=== PATIENT | female | born 1995 | race Caucasian/White ===

== ENCOUNTER 2017-08-21 08:34 | Inpatient (IN) | payer OTHER ==
[2017-08-21] MEDS ORDERED: OXYTOCIN 30 UNITS/LR 500 ML IV ×2 (09:00→13:00)
[2017-08-21] MEDS ORDERED: MISOPROSTOL 200 MCG TAB PR ×2 (09:00→13:00)
[2017-08-21] MEDS ORDERED: METHYLERGONOVINE 0.2 MG INJ IM (09:00)
[2017-08-21] MEDS ORDERED: CEFAZOLIN 2 GM/50 ML (PMX) 50 ML IV (09:00)
[2017-08-21] MEDS ORDERED: METOCLOPRAMIDE 10 MG INJ IM (09:00)
[2017-08-21] MEDS ORDERED: CARBOPROST 250 MCG INJ IM ×2 (09:00→13:00)
[2017-08-21] MEDS: LACTATED RINGER'S 1,000 ML IV ×3 (09:02→19:14)
[2017-08-21 09:10] LABS: ADD MAN DIFF? NO
[2017-08-21 09:18] LABS: BASOPHILS % 0.3 % (0.0-2.0); EOSINOPHILS % 0.2 % (0.0-7.0); HEMATOCRIT 28.6 % (37.0-47.0); HEMOGLOBIN 9.2 g/dl (12.0-16.0); LYMPHOCYTES # 2.2 10^3/ul (0.8-2.9); LYMPHOCYTES % 25.5 % (15.0-51.0); MEAN CORPUSCULAR HEMOGLOBIN 29.6 pg (29.0-33.0); MEAN CORPUSCULAR HGB CONC 32.2 g/dl (32.0-37.0); MEAN PLATELET VOLUME 11.4 fl (7.4-10.4); MONOCYTE # 0.6 10^3/ul (0.3-0.9); MONOCYTES % 6.5 % (0.0-11.0); NEUTROPHIL # 5.8 10^3/ul (1.6-7.5); NEUTROPHILS % 66.8 % (39.0-77.0); PLATELET COUNT 223 10^3/UL (140-415); RED BLOOD COUNT 3.11 10^6/ul (4.20-5.40); RED CELL DISTRIBUTION WIDTH 13.8 % (11.5-14.5)
[2017-08-21 09:18] LABS: WHITE BLOOD COUNT 8.6 10^3/ul (4.8-10.8)
[2017-08-21 09:35] LABS: ALANINE AMINOTRANSFERASE 17 IU/L (13-69); ALBUMIN/GLOBULIN RATIO 0.96; ALKALINE PHOSPHATASE 392 IU/L (42-121); ANION GAP 10 (8-16); ASPARTATE AMINO TRANSFERASE 28 IU/L (15-46); BILIRUBIN,INDIRECT 0.1 mg/dl (0-1.1); BILIRUBIN,TOTAL 0.1 mg/dl (0.2-1.3); BLOOD UREA NITROGEN 14 mg/dl (7-20); CALCIUM 8.7 mg/dl (8.4-10.2); CARBON DIOXIDE 21 mmol/L (21-31); CHLORIDE 112 mmol/L (97-110); CREATININE 0.76 mg/dl (0.44-1.00); GLUCOSE 76 mg/dl (70-220); POTASSIUM 4.2 mmol/L (3.5-5.1); SODIUM 139 mmol/L (135-144); TOTAL PROTEIN 6.1 g/dl (6.1-8.1); URIC ACID 5.5 mg/dl (3.1-7.9)
[2017-08-21 09:59] LABS: INR 0.88; PARTIAL THROMBOPLASTIN TIME 27.1 Sec (25.0-35.0); PT RATIO 0.9
[2017-08-21] MEDS: MAGNESIUM SULFATE 4 GM/100 ML 100 ML IV (10:28)
[2017-08-21] MEDS ORDERED: CA GLUCONATE (GM) 10% 10ML INJ IV ×2 (10:30→13:00)
[2017-08-21] MEDS: hydrALAzine 20 MG INJ IV (10:30)
[2017-08-21 10:48] LABS: ADD UMIC YES; UR ASCORBIC ACID NEGATIVE (NEGATIVE); UR BACTERIA FEW /HPF (NONE SEEN); UR BILIRUBIN (Dip) NEGATIVE (NEGATIVE); UR BLOOD (Dip) NEGATIVE (NEGATIVE); UR CLARITY SLIGHTLY CLOUDY (CLEAR); UR COLOR YELLOW (YELLOW); UR GLUCOSE (Dip) NEGATIVE (NEGATIVE); UR KETONES (Dip) NEGATIVE (NEGATIVE); UR LEUKOCYTE ESTERASE (Dip) NEGATIVE Leu/ul (NEGATIVE); UR MUCUS FEW /HPF (NONE SEEN); UR NITRITE (Dip) NEGATIVE (NEGATIVE); UR RBC 3 /HPF (0-5); UR SQUAMOUS EPITHELIAL CELL FEW /HPF (FEW); UR TOTAL PROTEIN (Dip) 3+ mg/dl (NEGATIVE); UR UROBILINOGEN (Dip) NEGATIVE (NEGATIVE); UR WBC 5 /HPF (0-5)
[2017-08-21] MEDS: FAMOTIDINE 20 MG INJ IV (10:57)
[2017-08-21] MEDS: ONDANSETRON 4 MG INJ IV (10:57)
[2017-08-21] MEDS: METOCLOPRAMIDE 10 MG INJ IV (11:00)
[2017-08-21] MEDS: MAGNESIUM SULFATE 20 GM/500 ML 500 ML IV ×2 (11:03→23:01)
[2017-08-21] MEDS: OXYTOCIN 30 UNITS/LR 500 ML IV ×2 (12:27→12:46)
[2017-08-21] MEDS ORDERED: HYDROmorphONE (0.2 MG/ML) 10ML SYG IV ×3 (12:30)
[2017-08-21] MEDS ORDERED: KETOROLAC 30 MG INJ IV ×2 (12:30)
[2017-08-21] MEDS ORDERED: LABETALOL HCL 20MG INJ IV (12:30)
[2017-08-21] MEDS ORDERED: HYDROmorphONE 0.5 MG/0.5 ML SYG IV ×2 (12:30)
[2017-08-21] MEDS ORDERED: ZOLPIDEM 5 MG TAB PO (12:30)
[2017-08-21] MEDS ORDERED: NALOXONE (0.4 MG/ML) INJ IV (12:30)
[2017-08-21] MEDS ORDERED: ONDANSETRON 4 MG INJ IV ×2 (12:30)
[2017-08-21] MEDS ORDERED: hydrALAzine 20 MG INJ IV (12:30)
[2017-08-21] MEDS ORDERED: DIPHENHYDRAMINE 50 MG INJ IV ×2 (12:30)
[2017-08-21] MEDS: CEFAZOLIN 1 GM/50 ML (PMX) 50 ML IV ×2 (13:00→22:18)
[2017-08-21] MEDS ORDERED: LANOLIN 7 GM TUBE TOP (13:00)
[2017-08-21 18:53] LABS: RAPID PLASMA REAGIN NONREACTIVE (NR)
[2017-08-21 19:00] LABS: MAGNESIUM 5.3 mg/dl (1.7-2.5)
[2017-08-21] MEDS: SENNA/DOCUSATE NA (8.6MG/50MG) TAB PO (21:00)
[2017-08-22] MEDS: KETOROLAC 30 MG INJ IV ×2 (00:53→06:39)
[2017-08-22 02:18] LABS: MAGNESIUM 5.1 mg/dl (1.7-2.5)
[2017-08-22] MEDS: CEFAZOLIN 1 GM/50 ML (PMX) 50 ML IV (06:06)
[2017-08-22] MEDS: MAGNESIUM SULFATE 20 GM/500 ML 500 ML IV (06:30)
[2017-08-22 08:59] LABS: ADD MAN DIFF? NO
[2017-08-22 09:08] LABS: ABNORMAL IP MESSAGE 1; BASOPHILS % 0.2 % (0.0-2.0); HEMATOCRIT 20.4 % (37.0-47.0); LYMPHOCYTES # 1.4 10^3/ul (0.8-2.9); MEAN CORPUSCULAR HEMOGLOBIN 30.6 pg (29.0-33.0); MEAN CORPUSCULAR HGB CONC 32.4 g/dl (32.0-37.0); MEAN CORPUSCULAR VOLUME 94.4 fl (82.0-101.0); MEAN PLATELET VOLUME 11.1 fl (7.4-10.4); MONOCYTE # 0.5 10^3/ul (0.3-0.9); MONOCYTES % 4.9 % (0.0-11.0); NEUTROPHIL # 7.9 10^3/ul (1.6-7.5); NEUTROPHILS % 80.4 % (39.0-77.0); PLATELET COUNT 180 10^3/UL (140-415); RED BLOOD COUNT 2.16 10^6/ul (4.20-5.40)
[2017-08-22 09:08] LABS: WHITE BLOOD COUNT 9.8 10^3/ul (4.8-10.8)
[2017-08-22 09:14] LABS: POSITIVE DIFF @See below
[2017-08-22 09:17] LABS: HEMOGLOBIN 6.6 g/dl (12.0-16.0)
[2017-08-22 09:49] LABS: MAGNESIUM 6.2 mg/dl (1.7-2.5)
[2017-08-22] MEDS: SENNA/DOCUSATE NA (8.6MG/50MG) TAB PO ×2 (09:50→21:06)
[2017-08-22] MEDS ORDERED: CEFAZOLIN 1 GM/50 ML (PMX) 50 ML IVPB (12:00)
[2017-08-22] MEDS: IBUPROFEN 600 MG TAB PO ×2 (12:27→18:22)
[2017-08-22] MEDS: OXYCODONE/ACETAMINOPHEN (5/325) TAB PO ×2 (13:43→19:40)
[2017-08-22] MEDS: FERROUS SULFATE (EC) 325 MG TAB PO ×2 (13:43→21:06)
[2017-08-23] MEDS: IBUPROFEN 600 MG TAB PO ×5 (00:14→23:40)
[2017-08-23 08:52] LABS: ADD MAN DIFF? NO
[2017-08-23 08:57] LABS: WHITE BLOOD COUNT 11.2 10^3/ul (4.8-10.8)
[2017-08-23 08:57] LABS: BASOPHILS % 0.2 % (0.0-2.0); EOSINOPHILS % 0.2 % (0.0-7.0); HEMATOCRIT 21.8 % (37.0-47.0); LYMPHOCYTES # 1.5 10^3/ul (0.8-2.9); LYMPHOCYTES % 12.9 % (15.0-51.0); MEAN CORPUSCULAR HGB CONC 32.1 g/dl (32.0-37.0); MEAN CORPUSCULAR VOLUME 93.6 fl (82.0-101.0); MEAN PLATELET VOLUME 10.8 fl (7.4-10.4); MONOCYTE # 0.6 10^3/ul (0.3-0.9); NEUTROPHIL # 9.1 10^3/ul (1.6-7.5); NEUTROPHILS % 81.2 % (39.0-77.0); PLATELET COUNT 245 10^3/UL (140-415); RED BLOOD COUNT 2.33 10^6/ul (4.20-5.40); RED CELL DISTRIBUTION WIDTH 14.4 % (11.5-14.5)
[2017-08-23] MEDS: FERROUS SULFATE (EC) 325 MG TAB PO ×3 (09:15→21:00)
[2017-08-23] MEDS: SENNA/DOCUSATE NA (8.6MG/50MG) TAB PO ×2 (09:15→21:20)
[2017-08-23] MEDS: OXYCODONE/ACETAMINOPHEN (5/325) TAB PO ×2 (14:19→21:20)
[2017-08-23] MEDS ORDERED: FERROUS GLUCONATE (EC) 325 MG TAB PO (21:00)
[2017-08-24] MEDS: IBUPROFEN 600 MG TAB PO ×4 (06:00→20:58)
[2017-08-24] MEDS: SENNA/DOCUSATE NA (8.6MG/50MG) TAB PO ×2 (08:13→20:54)
[2017-08-24] MEDS: FERROUS SULFATE (EC) 325 MG TAB PO ×3 (08:13→20:54)
[2017-08-24] MEDS: MAGNESIUM SULFATE 20 GM/500 ML 500 ML IV ×2 (11:00→21:00)
[2017-08-24] MEDS: MAGNESIUM SULFATE 4 GM/100 ML 100 ML IVPB (11:03)
[2017-08-24] MEDS ORDERED: BUPIVACAINE 0.75%/DEXT (SPINAL) 2 ML INJ (22:25)
[2017-08-24] MEDS ORDERED: OXYTOCIN 10 UNIT INJ (22:25)
[2017-08-24] MEDS ORDERED: morphine SULFATE/PF (10 MG/10 ML) INJ (22:25)
[2017-08-25] MEDS: IBUPROFEN 600 MG TAB PO ×3 (06:17→18:14)
[2017-08-25] MEDS: MAGNESIUM SULFATE 20 GM/500 ML 500 ML IV ×2 (07:00→17:00)
[2017-08-25 07:39] LABS: PATH REVIEW Y
[2017-08-25] MEDS: FERROUS SULFATE (EC) 325 MG TAB PO ×2 (09:40→13:00)
[2017-08-25] MEDS: SENNA/DOCUSATE NA (8.6MG/50MG) TAB PO (09:40)
== END 2017-08-25 18:49 | disposition home or self-care (01) | DRG 765 ==
LOC: L-D 08:34 → PP1 14:59
PROC: 10D00Z1 Extraction of Products of Conception, Low, Open Approach (ICD-10-PCS; principal; 2017-08-21 10:30)
PROC: 4A1HXCZ Monitoring of Products of Conception, Cardiac Rate, External Approach (ICD-10-PCS; 2017-08-21 10:30)
DX: O32.8XX2 Maternal care for other malpresentation of fetus, fetus 2 (principal); O30.043 Twin pregnancy, dichorionic/diamniotic, third trimester; O14.94 Unspecified pre-eclampsia, complicating childbirth; O90.81 Anemia of the puerperium; O90.89 Other complications of the puerperium, not elsewhere classified; R51 Headache; Z3A.38 38 weeks gestation of pregnancy; Z37.2 Twins, both liveborn
CPT/HCPCS: 80053; 81001; 83735; 84560; 85025; 85384; 85610; 85730; 86592; 86850; 86900; 86901; 88307; 99464